=== PATIENT | female | born 1965 | race Caucasian/White ===

== ENCOUNTER 2017-09-11 07:06 | Emergency (ER) | payer SELFPAY ==
[2017-09-11] MEDS: cloNIDine HCL 0.1 MG TABLET PO (07:44)
[2017-09-11 08:43] LABS: ADD MAN DIFF? NO
[2017-09-11 08:46] LABS: BASO # 0.1 x10^3/uL (0.0-0.2); BASO % 1 % (0-3); EOS % 1 % (0-3); HEMATOCRIT 38.5 % (36.0-47.0); HEMOGLOBIN 12.7 g/dL (12.0-15.5); LYMPH # 1.4 x10^3/uL (1.0-4.8); LYMPH % 19 % (24-48); MEAN CORPUSCULAR HEMOGLOBIN 32 pg (25-35); MEAN CORPUSCULAR HGB CONC 33 g/dL (31-37); MEAN CORPUSCULAR VOLUME 97 fL (79-100); MONO % 7 % (0-9); NEUT % 73 % (31-73); PLATELET COUNT 161 x10^3/uL (140-400); RED BLOOD COUNT 3.98 x10^6/uL (3.50-5.40); RED CELL DISTRIBUTION WIDTH 12.6 % (11.5-14.5); WHITE BLOOD COUNT 7.4 x10^3/uL (4.0-11.0)
[2017-09-11] MEDS: LABETALOL 20 MG/4 ML DISP.SYRIN. IVP ×2 (08:51→09:52)
[2017-09-11 08:57] LABS: ANION GAP 11 (6-14); BLOOD UREA NITROGEN 33 mg/dL (7-20); CALCIUM 8.5 mg/dL (8.5-10.1); CARBON DIOXIDE 26 mmol/L (21-32); CHLORIDE 104 mmol/L (98-107); CREATININE 0.8 mg/dL (0.6-1.0); GLUCOSE 110 mg/dL (70-99); POTASSIUM 3.8 mmol/L (3.5-5.1); SODIUM 141 mmol/L (136-145)
[2017-09-11 10:15] LABS: BILIRUBIN,URINE NEGATIVE (NEG); GLUCOSE,URINE NEGATIVE (NEG); NITRITE,URINE NEGATIVE (NEG); PH,URINE 6.5; PROTEIN,URINE NEGATIVE (NEG-TRACE); UROBILINOGEN,URINE 0.2 mg/dL (0.2 mg/dL)
[2017-09-11 10:25] LABS: BACTERIA,URINE 0 /HPF (0-FEW); RBC,URINE 0 /HPF (0-2); SQUAMOUS EPITHELIAL CELL,UR MOD /LPF; WBC,URINE 0 /HPF (0-4)
[2017-09-11] MEDS: OXYMETAZOLINE 0.05% NASAL SPRAY 30ML BOTTLE. NS (11:24)
== END 2017-09-11 11:47 | disposition home or self-care (01) ==
LOC: ER 07:06
DX: R04.0 Epistaxis (principal); I10 Essential (primary) hypertension; Z90.710 Acquired absence of both cervix and uterus
CPT/HCPCS: 36415; 80048; 81001; 85025; 96374; 96376; 99284-25; J3490

== ENCOUNTER 2019-03-14 19:18 | Inpatient (IN) | payer OTHER ==
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
[2019-03-14] MEDS ORDERED: VECURONIUM BOLUS 10 MG VIAL. IV ONE (20:30)
[2019-03-14] MEDS: IV NORMAL SALINE 1000ML BAG 1,000 ML IV SCH (20:39)
[2019-03-14 21:00] VITALS: BP 86/63
[2019-03-14 21:33] LABS: BASO % 1 % (0-3); EOS % 1 % (0-3); HEMATOCRIT 31.6 % (36.0-47.0); LYMPH # 1.3 x10^3/uL (1.0-4.8); LYMPH % 33 % (24-48); MEAN CORPUSCULAR HEMOGLOBIN 34 pg (25-35); MEAN CORPUSCULAR HGB CONC 35 g/dL (31-37); MEAN CORPUSCULAR VOLUME 99 fL (79-100); MONO # 0.3 x10^3/uL (0.0-1.1); MONO % 8 % (0-9); NEUT # 2.2 x10^3uL (1.8-7.7); NEUT % 57 % (31-73); PLATELET COUNT 137 x10^3/uL (140-400); RED BLOOD COUNT 3.21 x10^6/uL (3.50-5.40); RED CELL DISTRIBUTION WIDTH 12.3 % (11.5-14.5); WHITE BLOOD COUNT 3.9 x10^3/uL (4.0-11.0)
[2019-03-14 21:52] LABS: ALBUMIN 2.7 g/dL (3.4-5.0); CALCIUM 8.8 mg/dL (8.5-10.1); CREATININE 1.5 mg/dL (0.6-1.0); DIRECT BILIRUBIN 0.2 mg/dL (0.0-0.2); GFR 36.2; PHOSPHORUS 3.7 mg/dL (2.6-4.7); TOTAL BILIRUBIN 0.5 mg/dL (0.2-1.0); TOTAL PROTEIN 5.4 g/dL (6.4-8.2)
[2019-03-14 22:00] VITALS: BP 138/97
[2019-03-14 22:00] LABS: POTASSIUM 2.9 mmol/L (3.5-5.1)
[2019-03-14] MEDS ORDERED: POTASSIUM CHLORIDE 20 MEQ TABLET.ER. PO ONE (22:15)
[2019-03-14] MEDS ORDERED: POTASSIUM CHLORIDE 10MEQ 100 ML IV SCH (22:15)
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
[2019-03-14 23:00] VITALS: BP 184/109
[2019-03-14 23:16] LABS: BILIRUBIN,URINE NEGATIVE (NEG); CLARITY,URINE CLEAR; NITRITE,URINE NEGATIVE (NEG); PROTEIN,URINE 30 mg/dL (NEG-TRACE); UROBILINOGEN,URINE 0.2 mg/dL (0.2 mg/dL)
[2019-03-14 23:23] LABS: BACTERIA,URINE 0 /HPF (0-FEW); COLOR,URINE STRAW; SQUAMOUS EPITHELIAL CELL,UR OCC /LPF; WBC,URINE RARE /HPF (0-4)
[2019-03-15] VITALS (24 sets, daily range): BP systolic 111–211; BP diastolic 56–112
--- NOTE | 2019-03-15 00:42 | RAD ---
EXAM: AP View of the chest DATE: 03/14/2019 11:57 PM INDICATION: MTN, baseline COMPARISON: 03/13/2019 FINDINGS/ IMPRESSION: ET tube tip terminates approximately 3.2 cm above the karina. Enteric tube extends below the diaphragm the proximal sidehole is just beyond the GE junction. Cardiac mediastinal silhouette is stable tiny for differences in projection/technique. Moderate retrocardiac left lung base airspace opacity. Emphysematous changes are seen. Trace left pleural effusion. No pneumothorax. Electronically signed by: Ronald Campoverde MD (03/15/2019 12:39 AM) [facility]
[2019-03-15 03:08] LABS: BASO % 0 % (0-3); EOS % 0 % (0-3); HEMATOCRIT 32.6 % (36.0-47.0); LYMPH # 0.1 x10^3/uL (1.0-4.8); LYMPH % 2 % (24-48); MEAN CORPUSCULAR HEMOGLOBIN 34 pg (25-35); MEAN CORPUSCULAR HGB CONC 34 g/dL (31-37); MEAN CORPUSCULAR VOLUME 100 fL (79-100); MONO # 0.1 x10^3/uL (0.0-1.1); MONO % 1 % (0-9); NEUT # 6.8 x10^3uL (1.8-7.7); NEUT % 97 % (31-73); PLATELET COUNT 132 x10^3/uL (140-400); RED BLOOD COUNT 3.26 x10^6/uL (3.50-5.40); RED CELL DISTRIBUTION WIDTH 12.1 % (11.5-14.5)
[2019-03-15] MEDS ORDERED: IV RINGERS,LACTATED 1000ML 1,000 ML IV ONE (03:15)
[2019-03-15 03:16] LABS: PROTHROMBIN TIME PATIENT 12.8 SEC (11.7-14.0)
[2019-03-15 03:23] LABS: ALBUMIN 2.6 g/dL (3.4-5.0); DIRECT BILIRUBIN 0.2 mg/dL (0.0-0.2); MAGNESIUM 1.9 mg/dL (1.8-2.4); TOTAL BILIRUBIN 0.4 mg/dL (0.2-1.0); TOTAL PROTEIN 5.7 g/dL (6.4-8.2)
[2019-03-15 03:30] LABS: % BANDS 1 % (0-9); % LYMPHS 2 % (24-48); % MONOS 3 % (0-10); % SEGS 94 % (35-66); PLT ESTIMATE ADEQUATE (ADEQUATE)
[2019-03-15] MEDS ORDERED: MAGNESIUM SULFATE 2GM 50 ML IV ONE (04:30)
--- NOTE | 2019-03-15 05:26 | NUR ---
While giving a bath, patient's hair was being combed and a tick fell out onto patient's back. Tick was removed and placed in specimen cup, spot on back was circled to know if growing or getting more red.
[2019-03-15] MEDS ORDERED: ALBUTEROL SULFATE 2.5 MG/3 ML NEBU. NEB PRN (05:45)
[2019-03-15] MEDS ORDERED: IV NORMAL SALINE 1000ML BAG 1,000 ML IV ONE ×2 (06:30)
[2019-03-15] MEDS: IV NORMAL SALINE 1000ML BAG 1,000 ML IV SCH ×2 (07:30→16:31)
[2019-03-15] MEDS ORDERED: LABETALOL 20 MG/4 ML DISP.SYRIN. IVP ONE ×2 (08:45→14:30)
--- NOTE | 2019-03-15 08:49 | RAD ---
Chest radiograph 03/15/2019 5:13 AM INDICATION: Ventilated COMPARISON: March 15, 2019 at 12:05 AM TECHNIQUE: Frontal view of the chest is provided. FINDINGS: The cardiomediastinal silhouette is borderline in size, stable. Endotracheal tube is in similar position. Nasogastric tube is identified with the side port immediately below the level of the suspected level of the gastroesophageal junction. There are no pleural effusions. There is no pulmonary vascular congestion. There is no pneumothorax. Improved aeration of the left lung base with minimal persistent subsegmental atelectasis. No significant osseous abnormality is identified. IMPRESSION: Stable support lines and tubes. Interval improved aeration of the left lung base with persistent subsegmental atelectasis. Electronically signed by: Chani Gonzales MD (03/15/2019 8:46 AM) [facility]
[2019-03-15 09:19] LABS: BASO % 0 % (0-3); EOS % 0 % (0-3); HEMATOCRIT 32.4 % (36.0-47.0); HEMOGLOBIN 10.9 g/dL (12.0-15.5); LYMPH # 0.1 x10^3/uL (1.0-4.8); LYMPH % 1 % (24-48); MEAN CORPUSCULAR HEMOGLOBIN 34 pg (25-35); MEAN CORPUSCULAR HGB CONC 34 g/dL (31-37); MEAN CORPUSCULAR VOLUME 100 fL (79-100); MONO # 0.2 x10^3/uL (0.0-1.1); MONO % 2 % (0-9); NEUT # 10.7 x10^3uL (1.8-7.7); NEUT % 97 % (31-73); PLATELET COUNT 118 x10^3/uL (140-400); RED BLOOD COUNT 3.24 x10^6/uL (3.50-5.40); RED CELL DISTRIBUTION WIDTH 12.4 % (11.5-14.5)
[2019-03-15 09:37] LABS: PROTHROMBIN TIME PATIENT 12.4 SEC (11.7-14.0)
[2019-03-15 09:48] LABS: ALBUMIN 2.5 g/dL (3.4-5.0); DIRECT BILIRUBIN 0.2 mg/dL (0.0-0.2); MAGNESIUM 2.7 mg/dL (1.8-2.4); PHOSPHORUS 2.7 mg/dL (2.6-4.7); TOTAL BILIRUBIN 0.4 mg/dL (0.2-1.0); TOTAL PROTEIN 5.9 g/dL (6.4-8.2)
[2019-03-15] MEDS ORDERED: ALBUMIN HUMAN 25% 100 ML IV ONE (10:00)
--- NOTE | 2019-03-15 10:04 | CARD ---
MR#: [id number] Date of Study: 03/15/2019 Ordering Physician: ROBBY ALCAZAR, Referring Physician: ROBBY ALCAZAR Tech: Sendy Gonzales RDCS APPROVED REPORT EXAM: Two-dimensional and M-mode echocardiogram with Doppler and color Doppler. Other Information Quality : Excellent INDICATION Hemorrhagic Stroke, Organ Donation 2D DIMENSIONS RVDd1.7 (2.9-3.5cm)Left Atrium(2D)2.5 (1.6-4.0cm) IVSd1.4 (0.7-1.1cm)Aortic Root(2D)2.5 (2.0-3.7cm) LVDd3.8 (3.9-5.9cm)LVOT Diameter2.0 (1.8-2.4cm) PWd1.4 (0.7-1.1cm)LVDs2.7 (2.5-4.0cm) FS (%) 28.4 %SV33.4 ml M-Mode DIMENSIONS IVSd1.38 (0.7-1.1cm)LVDd3.97 (4.0-5.6cm) PWd1.41 (0.7-1.1cm)IVSs1.44 cm FS (%) 27 %LVDs2.88 (2.0-3.8cm) ESV(Teich)31.8 ml Aortic Valve AoV Peak Williams.125.9cm/sAoV VTI17.4cm AO Peak GR.6.3mmHgLVOT VTI 15.20cm AO Mean GR.4mmHgAVA (VTI)2.80cm2 Mitral Valve MV E Gzuzwqbr21.6cm/sMV DECEL ODVC92eu MV A Xhiboone88.5cm/sE/A Ratio0.7 TDI Lateral E' P. V5.34cm/sMedial E' P. V4.96cm/s E/Lateral E'9.1E/Medial E'9.8 Tricuspid Valve TR P. Kvutiawr222az/sRAP IDUADXBS4kzBt TR Peak Gr.15qsOtKDDB52yfFp Pulmonary Vein S1 Rbvsmwjk45.8cm/sS2 Fmbjzyog32.49cm/s D2 Ekexjoav39.5cm/s LEFT VENTRICLE The left ventricle is normal size. There is mild to moderate concentric left ventricular hypertrophy. Left ventricle systolic function is mildly impaired. The Ejection Fraction is 40-45%. There is mild global hypokinesis of the left ventricle. Transmitral Doppler flow pattern is Grade I-abnormal relaxa tion pattern. RIGHT VENTRICLE The right ventricle is normal size. The right ventricular systolic function is normal. ATRIA The left atrium size is normal. The right atrium size is normal. The interatrial septum is intact wit h no evidence for an atrial septal defect or patent foramen ovale as noted on 2-D or Doppler imaging. AORTIC VALVE The aortic valve is normal in structure and function. Doppler and Color Flow revealed no significant aortic regurgitation. There is no significant aortic valvular stenosis. MITRAL VALVE The mitral valve is normal in structure and function. There is no evidence of mitral valve prolapse. There is no mitral valve stenosis. Doppler and Color-flow revealed trace mitral regurgitation. TRICUSPID VALVE The tricuspid valve is normal in structure and function. Doppler and Color Flow revealed trace tricus pid regurgitation. The PA pressure was estimated at 34 mmHg. There is no tricuspid valve stenosis. PULMONIC VALVE The pulmonic valve is not well visualized. Doppler and Color Flow revealed no pulmonic valvular regur gitation. There is no pulmonic valvular stenosis. GREAT VESSELS The aortic root is normal in size. The ascending aorta is normal in size. The IVC is normal in size a nd collapses >50% with inspiration. PERICARDIAL EFFUSION There is no evidence of significant pericardial effusion. Critical Notification Critical Value: No <Conclusion> The left ventricle is normal size. Left ventricle systolic function is mildly impaired. The Ejection Fraction is 40-45%. There is mild global hypokinesis of the left ventricle. There is mild to moderate concentric left ventricular hypertrophy. There is no significant aortic valvular stenosis. Doppler and Color Flow revealed no significant aortic regurgitation. Doppler and Color-flow revealed trace mitral regurgitation. Doppler and Color Flow revealed trace tricuspid regurgitation. The PA pressure was estimated at 34 mmHg. Signed by : Jarvis James MD Electronically Approved : 03/15/2019 10:03:45
[2019-03-15 11:00] LABS: CALCIUM 8.6 mg/dL (8.5-10.1); CREATININE 1.5 mg/dL (0.6-1.0); GFR 36.2; POTASSIUM 3.2 mmol/L (3.5-5.1)
[2019-03-15] MEDS: POTASSIUM CHLORIDE 10MEQ 100 ML IV SCH ×4 (11:42→14:26)
--- NOTE | 2019-03-15 12:33 | RAD ---
PORTABLE CHEST 1V 11:54 AM Clinical indications: Transplant workup. Intubated. COMPARISON: Same day performed at 5:13 AM FINDINGS/ IMPRESSION: ET tube tip is located 5 cm above the level of karina. NG tube tip is seen within the proximal body of stomach. Proximal port is seen at the GE junction. Increase in left lung base atelectasis is seen. Heart is now shifted towards the left side and therefore this may be secondary to central obstruction possibly mucous plugging. No pleural effusion or pneumothorax is seen. Electronically signed by: Enoch Keith MD (03/15/2019 12:30 PM) [place] [id number]
--- NOTE | 2019-03-15 12:38 | EKG ---
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
[2019-03-15 15:03] LABS: BASO # 0.1 x10^3/uL (0.0-0.2); BASO % 1 % (0-3); EOS % 0 % (0-3); HEMATOCRIT 27.2 % (36.0-47.0); HEMOGLOBIN 9.2 g/dL (12.0-15.5); LYMPH # 0.2 x10^3/uL (1.0-4.8); LYMPH % 1 % (24-48); MEAN CORPUSCULAR HEMOGLOBIN 34 pg (25-35); MEAN CORPUSCULAR HGB CONC 34 g/dL (31-37); MEAN CORPUSCULAR VOLUME 100 fL (79-100); MONO # 0.3 x10^3/uL (0.0-1.1); MONO % 2 % (0-9); NEUT # 10.8 x10^3uL (1.8-7.7); NEUT % 96 % (31-73); PLATELET COUNT 115 x10^3/uL (140-400); RED BLOOD COUNT 2.72 x10^6/uL (3.50-5.40); RED CELL DISTRIBUTION WIDTH 12.2 % (11.5-14.5); WHITE BLOOD COUNT 11.3 x10^3/uL (4.0-11.0)
[2019-03-15 15:13] LABS: HEMOGLOBIN A1C 4.9 % (4.8-5.6)
[2019-03-15 15:19] LABS: DIRECT BILIRUBIN 0.1 mg/dL (0.0-0.2); MAGNESIUM 2.8 mg/dL (1.8-2.4); PHOSPHORUS 2.2 mg/dL (2.6-4.7); PROTHROMBIN TIME PATIENT 12.5 SEC (11.7-14.0); TOTAL BILIRUBIN 0.6 mg/dL (0.2-1.0)
[2019-03-15 16:08] LABS: CALCIUM 8.8 mg/dL (8.5-10.1); CREATININE 1.7 mg/dL (0.6-1.0); GFR 31.3; POTASSIUM 4.6 mmol/L (3.5-5.1)
--- NOTE | 2019-03-15 19:40 | NUR ---
MTN family coordinator trying to notify , Alfred, of tentative OR time, receiving no call back.
[2019-03-15 21:31] LABS: PROTHROMBIN TIME PATIENT 13.2 SEC (11.7-14.0)
[2019-03-15 21:42] LABS: ALBUMIN 2.8 g/dL (3.4-5.0); CALCIUM 9.1 mg/dL (8.5-10.1); CREATININE 1.7 mg/dL (0.6-1.0); DIRECT BILIRUBIN 0.3 mg/dL (0.0-0.2); GFR 31.3; MAGNESIUM 2.8 mg/dL (1.8-2.4); PHOSPHORUS 2.2 mg/dL (2.6-4.7); POTASSIUM 3.8 mmol/L (3.5-5.1); TOTAL BILIRUBIN 0.6 mg/dL (0.2-1.0); TOTAL PROTEIN 5.7 g/dL (6.4-8.2)
[2019-03-15] MEDS ORDERED: IV 1/2 NORMAL SALINE 1,000 ML IV SCH (22:15)
[2019-03-16] VITALS: BP 126/69
[2019-03-16 01:00] VITALS: BP 136/72
[2019-03-16] MEDS ORDERED: ceFAZolin SODIUM IV Push 1 GM VIAL. IVP PRN (01:00)
[2019-03-16 02:00] VITALS: BP 129/69
[2019-03-16] MEDS ORDERED: IV RINGERS,LACTATED 1000ML 1,000 ML IV ONE (02:45)
[2019-03-16 03:00] VITALS: BP 129/71
[2019-03-16 03:20] LABS: BASO % 0 % (0-3); EOS % 0 % (0-3); HEMATOCRIT 23.6 % (36.0-47.0); HEMOGLOBIN 7.9 g/dL (12.0-15.5); LYMPH # 0.3 x10^3/uL (1.0-4.8); LYMPH % 4 % (24-48); MEAN CORPUSCULAR HEMOGLOBIN 34 pg (25-35); MEAN CORPUSCULAR HGB CONC 34 g/dL (31-37); MEAN CORPUSCULAR VOLUME 101 fL (79-100); MONO # 0.2 x10^3/uL (0.0-1.1); MONO % 3 % (0-9); NEUT # 7.1 x10^3uL (1.8-7.7); NEUT % 93 % (31-73); PLATELET COUNT 91 x10^3/uL (140-400); RED BLOOD COUNT 2.35 x10^6/uL (3.50-5.40); RED CELL DISTRIBUTION WIDTH 12.5 % (11.5-14.5); WHITE BLOOD COUNT 7.6 x10^3/uL (4.0-11.0)
[2019-03-16 03:34] LABS: PROTHROMBIN TIME PATIENT 13.4 SEC (11.7-14.0)
[2019-03-16 03:39] LABS: ALBUMIN 2.4 g/dL (3.4-5.0); CALCIUM 8.8 mg/dL (8.5-10.1); CREATININE 1.9 mg/dL (0.6-1.0); DIRECT BILIRUBIN 0.3 mg/dL (0.0-0.2); GFR 27.5; MAGNESIUM 2.4 mg/dL (1.8-2.4); PHOSPHORUS 3.4 mg/dL (2.6-4.7); TOTAL BILIRUBIN 0.5 mg/dL (0.2-1.0); TOTAL PROTEIN 5.1 g/dL (6.4-8.2)
[2019-03-16 04:00] VITALS: BP 157/92
[2019-03-16 04:42] LABS: BILIRUBIN,URINE NEGATIVE (NEG); CLARITY,URINE CLEAR; COLOR,URINE YELLOW; NITRITE,URINE NEGATIVE (NEG); PH,URINE 5.5; PROTEIN,URINE 100 mg/dL (NEG-TRACE); UROBILINOGEN,URINE 0.2 mg/dL (0.2 mg/dL)
[2019-03-16 04:53] LABS: BACTERIA,URINE 0 /HPF (0-FEW)
[2019-03-16 04:54] LABS: AMORPHOUS SEDIMENT,UR PRESENT /HPF; GRANULAR CASTS,URINE OCCASIONAL /HPF; HYALINE CASTS, URINE OCCASIONAL /HPF
[2019-03-16] MEDS ORDERED: ROCURONIUM 50 MG/5 ML VIAL. ONE (05:18)
--- NOTE | 2019-03-16 05:41 | NUR ---
Patient to OR at 0520 accompanied by OR staff. Family at bedside prior to leaving.
--- NOTE | 2019-03-25 20:06 | PATHOLOGY ---
[facility] Accession Number: [id number] . 01 Material submitted: . liver - LIVER BIOPSY . 02 Frozen section diagnosis: . INTRAOPERATIVE CONSULTATION WITH FROZEN SECTION: Liver, biopsy: - Macrovesicular steatosis - 5%. - Microvesicular steatosis - 10%. - Active inflammation - Negative - Cirrhosis - Negative. . The findings were relayed to Juan Francisco from the Transplant Center and this is also documented on a form accompanying the specimen from the Transplant Center on 03/16/2019 at 6:45 a.m. . (ARIK:lucy; 03/17/2019) . . FROZEN SECTION GROSS DESCRIPTION: Specimen received fresh for frozen section, labeled, "Negrita Alvarez - Liver biopsy", is a triangular portion of rdz-red tissue measuring 0.8 x 0.8 x 0.5 cm. It is bisected and entirely submitted for frozen section and is now re-submitted for permanent section labeled FSA1. (ARIK:lucy; 03/17/2019) . Frozen section performed at [facility], [address] [place] [address]. RYAN/MARÍA . 02 Diagnosis: Transplant liver biopsy: - Macrovesicular steatosis - 1%. - Microvesciular steatosis - 10%. - No significant active inflammation present. - No evidence of cirrhosis. - Bile duct hamartoma, microscopic. . (SKM:cedrick; 03/25/2019) QMS/03/25/2019 . 02 Electronically signed: . Jarret Pina MD, Pathologist NPI- [id number] . 01 Gross description: . SEE FROZEN SECTION GROSS DESCRIPTION: /TOB . 02 Pathologist provided ICD-10: K76.0 . 02 CPT . 692466, 361842 Specimen Comment: A courtesy copy of this report has been sent to Specimen Comment: [phone]. Specimen Comment: Report sent to Performed at: [address] [id number] MD Billy Raymond MD Phone: [phone] Performed at: 02 [facility] [address] [place] [id number] MD Toy Hensley MD Phone: [phone]
== END 2019-03-16 08:26 | disposition expired | DRG 981 ==
LOC: 1 WEST ICU 19:18
PROC: 5A1945Z Respiratory Ventilation, 24-96 Consecutive Hours (ICD-10-PCS; principal; 2019-03-14)
PROC: 0TT20ZZ Resection of Bilateral Kidneys, Open Approach (ICD-10-PCS; 2019-03-16)
PROC: 0FT00ZZ Resection of Liver, Open Approach (ICD-10-PCS; 2019-03-16)
PROC: 0BH17EZ Insertion of Endotracheal Airway into Trachea, Via Natural or Artificial Opening (ICD-10-PCS; 2019-03-16)
DX: I61.3 Nontraumatic intracerebral hemorrhage in brain stem (principal); N17.0 Acute kidney failure with tubular necrosis; G93.5 Compression of brain; E87.1 Hypo-osmolality and hyponatremia; I16.1 Hypertensive emergency; E87.6 Hypokalemia; E87.8 Other disorders of electrolyte and fluid balance, not elsewhere classified; R29.720 NIHSS score 20
CPT/HCPCS: 36415; 36600; 71045; 80048; 80076; 81001; 82150; 82310; 82550; 82962; 82977; 83036; 83605; 83615; 83690; 83735; 84100; 84484; 85007; 85025; 85384; 85610; 85730; 86850; 86900; 86901; 86920; 87040; 87070; 87086; 87186; 87205; 93005; 93306; 94003; J0690; J3475; J3480; J3490; J7030; J7050; J7120; P9046; 99285-25